=== PATIENT | female | born 1990 | race Caucasian/White ===

== ENCOUNTER 2021-06-02 15:24 | Emergency (ER) | payer OTHER ==
[~2021-06-02 15:24] MED LIST: BENADRYL 25MG C25 MG PO; COLACE100 MG PO; LODINE CAP 300300 MG PO; PENVEE K 500 M500 MG PO; PEPCID40 MG PO; PREDNISONE20 MG PO
== END 2021-06-02 17:45 | disposition home or self-care (01) ==
LOC: ER1 15:24
DX: U07.1 COVID-19 (principal); F17.200 Nicotine dependence, unspecified, uncomplicated; Z88.5 Allergy status to narcotic agent; Z88.8 Allergy status to other drugs, medicaments and biological substances
CPT/HCPCS: 71045; 99284